=== PATIENT | male | born 1985 | race Caucasian/White ===

== ENCOUNTER 2019-09-11 20:06 | Emergency (ER) | payer SELFPAY ==
[~2019-09-11] VITALS: Ht 160 cm; Wt 84.5 kg
[2019-09-11 20:14] VITALS: TEMP 97.8
[2019-09-11 20:42] LABS: BASO % 0.8 % (0.0-2.0); EOS # 0.3 (0.0-0.7); EOS % 5.9 % (0-4.0); GRAN # 2.5 (1.4-6.5); GRAN % 49.5 % (42.2-75.2); HEMATOCRIT 43.6 % (42.0-52.0); LYMPH # 1.7 (1.2-3.4); LYMPH % 33.3 % (20.0-51.0); MEAN CELL VOLUME 89 fl (80.0-100.0); MEAN CORPUSCULAR HEMOGLOBIN 31 pg (27.0-31.0); MEAN CORPUSCULAR HGB CONC 34 g/dl (33.0-37.0); MEAN PLATELET VOLUME 11.7 fl (7.4-10.4); MONO # 0.5 (0.1-0.6); MONO % 10.1 % (1.7-9.3); PLATELET COUNT 225 K/mm3 (130-400); REDCELL DISTRIBUTION WIDTH-CV 12.6 % (11.5-14.5)
[2019-09-11 20:51] LABS: ALANINE AMINOTRANSFERASE 62 U/L (21-72); ALBUMIN 4.5 gm/dL (3.5-5.0); ALKALINE PHOSPHATASE 84 U/L (50-136); ANION GAP 9 mmol/L (7-16); AST,SGOT 64 U/L (15-37); BILIRUBIN,TOTAL 0.4 mg/dL (0.0-1.0); BLOOD UREA NITROGEN 15 mg/dL (9-20); CALCIUM 8.7 mg/dL (8.4-10.2); CARBON DIOXIDE 29 mmol/L (22-30); CHLORIDE 103 mmol/L (98-107); CREATININE, serum 0.69 (0.66-1.25); GLUCOSE 109 mg/dL (74-106); POTASSIUM 3.6 mmol/L (3.4-5.0); SODIUM 141 mmol/L (137-145); TOTAL PROTEIN 8.5 gm/dL (6.4-8.2)
[2019-09-11 20:55] LABS: C-REACTIVE PROTEIN < 0.5 mg/dL (0.0-0.9)
[2019-09-11 21:00] LABS: TROPONIN-I < 0.012 ng/mL (0.000-0.035)
[2019-09-11] MEDS ORDERED: PRILOSEC 20MG20 MG PO (21:18)
[2019-09-11 22:00] VITALS: BP 118/874; PULSE 89
== END 2019-09-11 22:00 | disposition home or self-care (01) ==
LOC: COL.ER 20:06
PROVIDERS: Physician Assistant
DX: K21.9 Gastro-esophageal reflux disease without esophagitis (principal)
CPT/HCPCS: C9113; J7030